=== PATIENT | female | born 1935 | race Two or more races ===

== ENCOUNTER 2019-11-26 14:58 | Inpatient (IN) | payer MEDICARE, OTHER ==
[~2019-11-26] VITALS: Ht 170.2 cm; Wt 104.3 kg
--- NOTE | 2019-11-26 15:48 | NUR ---
Miesha (bilingual receptionist) utilized as project director. Pt denies any pain/complaints at this time. Plan of care discussed
[2019-11-26 16:00] LABS: BASOPHILS # (AUTO) 0.1 /CMM (0.0-0.2); BASOPHILS % (AUTO) 0.8 % (0.0-2.0); EOSINOPHILS % (AUTO) 1.9 % (0.0-6.0); HEMATOCRIT 25 % (33-45); HEMOGLOBIN 7.6 g/dL (11.5-14.8); LYMPHOCYTES # (AUTO) 1.9 /CMM (0.8-4.8); LYMPHOCYTES % (AUTO) 25.2 % (20.0-44.0); MEAN CORPUSCULAR HGB CONC 31 g/dl (31.0-36.0); MEAN CORPUSCULAR VOLUME 77 fL (82-100); MONOCYTES # (AUTO) 0.6 /CMM (0.1-1.30); MONOCYTES % (AUTO) 7.6 % (2.0-12.0); NEUTROPHILS % (AUTO) 64.5 % (43.0-81.0); PLATELET COUNT (AUTO) 378 /CMM (150-450); WHITE BLOOD COUNT (AUTO) 7.7 K/uL (4.3-11.0)
[2019-11-26 16:19] LABS: CARBON DIOXIDE 26 mmol/L (21-32); CHLORIDE 101 mmol/L (98-107); CREATININE 1.4 mg/dL (0.6-1.3); GLUCOSE 180 mg/dL (74-106); POTASSIUM 3.6 mmol/L (3.5-5.1); SODIUM SERUM 137 mmol/L (136-145); UREA NITROGEN, BLOOD 28 mg/dL (7-18)
--- NOTE | 2019-11-26 16:21 | NUR ---
PANEL ON-CALL PAGED
[2019-11-26 16:24] LABS: ALANINE AMINOTRANSFERASE 16 U/L (12-78); ALBUMIN 3.1 g/dL (3.4-5.0); ALKALINE PHOSPHATASE 63 U/L (46-116); ASPARTATE AMINOTRANSFERASE 11 U/L (15-37); B-TYPE NATRIURETIC PEPTIDE 833 PG/ML (0-125); BILIRUBIN,DIRECT 0.1 mg/dL (0.0-0.2); BILIRUBIN,TOTAL 0.3 mg/dL (0.2-1.0); TOTAL PROTEIN, SERUM 6.7 g/dL (6.4-8.2)
--- NOTE | 2019-11-26 16:44 | NUR ---
Pt going [id number] Nurse Knowledge exchange w/RN Bethany. Pt made aware of plan. Denies any complaints at this time. Transported/bryan VIDAL
--- NOTE | 2019-11-26 16:50 | NUR ---
PAGED EPIC SECOND ATTEMPT.
--- NOTE | 2019-11-26 17:41 | NUR ---
Transported per [facility]. No obvious distress
--- NOTE | 2019-11-26 17:55 | NUR ---
DIRECTOR OF PRIMARY NOTES RECEIVED PATIENT IN MEDICALLY STABLE CONDITION. VS: BP: 143/71, TEMP: 98.1 HR: 71 RESP: 18 O2 92 ON ROOM AIR. WILL CONTINUE TO ADMIT AND MONITOR PATIENT
[2019-11-26] MEDS ORDERED: Z GUARD REMEDY 2 OZ OINT TP PRN (18:30)
[2019-11-26] MEDS ORDERED: ONDANSETRON HCL/PF 4 MG/2 ML VIAL IVP PRN (18:30)
[2019-11-26] MEDS ORDERED: ACETAMINOPHEN 325 MG TABLET PO PRN (18:30)
--- NOTE | 2019-11-26 19:10 | NUR ---
TOBACCO SORTER NOTES PATIENT IS IN BED, AWAKE, A/O X3. PATIENT BREATHING ON ROOM AIR; BREATHING IS EVEN AND UNLABORED; NO SOB PRESENT. R HAND G # 20 PRESENT AND INTACT. SAFETY PRECAUTIONS IN PLACE; BED IN LOW POSITION AND LOCKED, RAILS UP X2, CALL LIGHT WITHIN REACH. WILL ENDORSE CONTINUITY OF CARE AND ADMITION TO LENS MARKER NURSE.
[2019-11-26 20:00] VITALS: BP 131/58
[2019-11-27] VITALS: BP 122/67
[2019-11-27 06:29] VITALS: BP 112/58
[2019-11-27 06:37] LABS: BASOPHILS % (AUTO) 0.4 % (0.0-2.0); EOSINOPHILS % (AUTO) 2.6 % (0.0-6.0); HEMATOCRIT 26 % (33-45); HEMOGLOBIN 8.3 g/dL (11.5-14.8); LYMPHOCYTES % (AUTO) 27.6 % (20.0-44.0); MEAN CORPUSCULAR HGB CONC 32 g/dl (31.0-36.0); MEAN CORPUSCULAR VOLUME 75 fL (82-100); MONOCYTES # (AUTO) 0.5 /CMM (0.1-1.30); MONOCYTES % (AUTO) 6.3 % (2.0-12.0); NEUTROPHILS # (AUTO) 4.5 /CMM (1.8-8.9); NEUTROPHILS % (AUTO) 63.1 % (43.0-81.0); PLATELET COUNT (AUTO) 389 /CMM (150-450); RED BLOOD CELL COUNT(AUTO) 3.45 MIL/uL (4.0-5.2); WHITE BLOOD COUNT (AUTO) 7.2 K/uL (4.3-11.0)
[2019-11-27 06:54] LABS: ALBUMIN 3.1 g/dL (3.4-5.0); BILIRUBIN,TOTAL 0.5 mg/dL (0.2-1.0); CALCIUM, SERUM 8.5 mg/dL (8.5-10.1); CREATININE 1.3 mg/dL (0.6-1.3); MAGNESIUM 1.6 mg/dL (1.8-2.4); PHOSPHORUS 3.6 mg/dL (2.5-4.9); POTASSIUM 3.9 mmol/L (3.5-5.1); TOTAL PROTEIN, SERUM 7.1 g/dL (6.4-8.2)
[2019-11-27 06:57] LABS: THYROID STIMULATING HORMONE 1.684 uIU/mL (0.358-3.74)
--- NOTE | 2019-11-27 07:30 | NUR ---
ms rn received on bed, awake,alert,oriented x3,not in any form of distress,respirations even and unlabored,no sob noted.
[2019-11-27 08:00] VITALS: BP 120/46
--- NOTE | 2019-11-27 08:30 | NUR ---
ms rn breakfast served, was seen by dr. laila piper/ orders made and carried out.
[2019-11-27 09:23] LABS: CREATININE, URINE 108.2 MG/DL (30.0-125.0); URINE TOTAL PROTEIN 17.4 mg/dL (0-11.9)
[2019-11-27] MEDS ORDERED: ENOXAPARIN SODIUM 40 MG/0.4 ML DISP.SYRIN SQ SCH (09:30)
[2019-11-27] MEDS: FUROSEMIDE 40 MG/4 ML VIAL IV SCH ×3 (10:00→17:11)
[2019-11-27] MEDS: PANTOPRAZOLE 40 MG TABLET.DR PO SCH (10:01)
[2019-11-27] MEDS: POTASSIUM CHLORIDE 20 MEQ TAB.PRT.SR PO SCH ×3 (10:01→13:10)
[2019-11-27] MEDS: Magnesium 1GM/D5W 100ML PREMIX 100 ML IV SCH ×2 (10:13→12:04)
[2019-11-27 10:25] LABS: APPEARANCE,URINE SL CLOUDY (CLEAR); BILIRUBIN,URINE NEGATIVE (NEGATIVE); BLOOD, URINE NEGATIVE Ery/uL (NEGATIVE); COLOR,URINE YELLOW (YELLOW); KETONES,URINE NEGATIVE (NEGATIVE); LEUKOCYTE ESTERASE ,URINE LARGE (NEGATIVE); NITRITE, URINE NEGATIVE (NEGATIVE); PROTEIN,URINE NEGATIVE (NEGATIVE); UGLUCOSE NEGATIVE (NEGATIVE); UROBILINOGEN,URINE 0.2 EU/dL (0.2)
[2019-11-27 10:33] LABS: RBC,URINE 0-2 /HPF (0-2); SQUAMOUS EPITHELIAL CELL,UR Few /HPF (None Seen); WBC,URINE 21-50 /HPF (0-3)
[2019-11-27 10:34] LABS: BACTERIA,URINE Few /HPF (None Seen)
--- NOTE | 2019-11-27 11:02 | NUR ---
PRELIM RESULTS OF DUPLEX VENOUS LOWER EXT BILATERAL SHOWED POSITIVE FOR DVT AT LT SFV PROX. FINDINGS ADVISED TO RN.
[2019-11-27 11:17] LABS: EOSINOPHIL,URINE None Seen
[2019-11-27 12:00] VITALS: BP 143/55
--- NOTE | 2019-11-27 13:00 | NUR ---
ms bhaskar called dr. ulloa for dvt positive result w/ orders made and carried out.
[2019-11-27] MEDS ORDERED: ENOXAPARIN SODIUM 100 MG/ML DISP.SYRIN SQ SCH (14:00)
[2019-11-27] MEDS ORDERED: ENOXAPARIN SODIUM 60 MG/0.6 ML DISP.SYRIN SQ ONE (14:30)
[2019-11-27] MEDS: SOD FERRIC GLUC 125 MG in IV NS 0.9% 100 ML IV SCH (14:39)
[2019-11-27 16:00] VITALS: BP 164/69
--- NOTE | 2019-11-27 18:00 | NUR ---
ms rn on bed, no distress noted.
--- NOTE | 2019-11-27 19:10 | NUR ---
RN OPENING NOTES Received patient, A/o x4 awake on bed resting. Patient denies any discomfort at this time, saturating well at RA. On fall and aspiration precautions. Kept on bed clean, dry and comfortable. Will continue to monitor accordingly.
[2019-11-27 20:00] VITALS: BP 118/61
[2019-11-27] MEDS: ENOXAPARIN SODIUM 100 MG/ML DISP.SYRIN SQ SCH (20:52)
[2019-11-27] MEDS: HYDROCODONE/APAP 5/325MG 1 EACH TABLET PO PRN (21:17)
--- NOTE | 2019-11-28 07:08 | NUR ---
RN CLOSING NOTES Patient asleep on bed, easily awaken. No new complaints made. Pain managed with PRN meds ordered. All nursing needs attended. No new complaints noted. Endorsed.
[2019-11-28 08:00] VITALS: BP 128/64
--- NOTE | 2019-11-28 08:00 | NUR ---
MS RN OPENING NOTES Received Patient awake and resting in bed. A/O x 3, Amharic speaking. VS stable with no acute distress. Breathing even and unlabored on room air with no respiratory distress. Denies pain. No signs and symptoms of pain. 20g PIV on right hand clean, intact, patent and flushing well. 24g PIV on left hand clean, intact, patent and flushing well. Safety precautions in place. Bed locked and set to lowest position with side rails x 2 up. All needs rendered at this time. Call light within reach. Will continue to monitor.
[2019-11-28 08:01] LABS: BASOPHILS % (AUTO) 0.7 % (0.0-2.0); EOSINOPHILS % (AUTO) 3.3 % (0.0-6.0); HEMATOCRIT 26 % (33-45); HEMOGLOBIN 8.2 g/dL (11.5-14.8); LYMPHOCYTES # (AUTO) 1.4 /CMM (0.8-4.8); LYMPHOCYTES % (AUTO) 26.7 % (20.0-44.0); MEAN CORPUSCULAR HGB CONC 31 g/dl (31.0-36.0); MEAN CORPUSCULAR VOLUME 76 fL (82-100); MONOCYTES # (AUTO) 0.4 /CMM (0.1-1.30); MONOCYTES % (AUTO) 7.5 % (2.0-12.0); NEUTROPHILS # (AUTO) 3.3 /CMM (1.8-8.9); NEUTROPHILS % (AUTO) 61.8 % (43.0-81.0); PLATELET COUNT (AUTO) 354 /CMM (150-450); RED BLOOD CELL COUNT(AUTO) 3.46 MIL/uL (4.0-5.2); WHITE BLOOD COUNT (AUTO) 5.3 K/uL (4.3-11.0)
[2019-11-28] MEDS: ENOXAPARIN SODIUM 100 MG/ML DISP.SYRIN SQ SCH ×2 (08:27→21:19)
[2019-11-28] MEDS: PANTOPRAZOLE 40 MG TABLET.DR PO SCH (08:27)
[2019-11-28 08:30] LABS: BILIRUBIN,TOTAL 0.4 mg/dL (0.2-1.0); CALCIUM, SERUM 8.6 mg/dL (8.5-10.1); PHOSPHORUS 3.7 mg/dL (2.5-4.9); POTASSIUM 3.9 mmol/L (3.5-5.1); TOTAL PROTEIN, SERUM 6.8 g/dL (6.4-8.2)
[2019-11-28 10:09] LABS: PTH, INTACT 64 pg/mL (15-65)
[2019-11-28] MEDS: SOD FERRIC GLUC 125 MG in IV NS 0.9% 100 ML IV SCH (14:26)
[2019-11-28 16:00] VITALS: BP 147/63
[2019-11-28] MEDS: CEFTRIAXONE 1 G in IV D5W 50 ML IV SCH (16:10)
--- NOTE | 2019-11-28 18:43 | NUR ---
MS RN CLOSING NOTES Patient awake and resting in bed. A/O x 3, Nepalese speaking. VS stable with no acute distress. Breathing even and unlabored on room air with no respiratory distress. Denies pain. No signs and symptoms of pain. 24g PIV on left hand clean, intact, patent and flushing well. Safety precautions in place. Bed locked and set to lowest position with side rails x 2 up. All needs rendered at this time. Call light within reach. Will endorse plan of care to oncoming shift.
--- NOTE | 2019-11-28 19:20 | NUR ---
MS/RN OPENING NOTES: Received Patient awake and resting in bed. A/O x 3, Hungarian speaking, understands Czech. VS stable with no acute distress. Breathing even and unlabored on room air with no respiratory distress. Denies pain. No signs and symptoms of pain. IV present on the left hand #24g SL, clean, intact, patent and flushing well. Safety precautions in place. Bed locked and set to lowest position with side rails x 2 up. All needs rendered at this time. Call light within reach. Will continue to monitor accordingly.
[2019-11-28 20:00] VITALS: BP 149/63
[2019-11-28 21:03] VITALS: BP 149/63
[2019-11-29] MEDS: HYDROCODONE/APAP 5/325MG 1 EACH TABLET PO PRN (02:55)
--- NOTE | 2019-11-29 02:56 | NUR ---
MS/RN NOTES: PT COMPLAINED OF PAIN ON PALMA. CALF/LEGS. BP:143/79. HR:83. NO SOB NOTED, BREATHING EVEN AND UNLABORED. PT STABLE. ADMINISTERED 5/[address] TOLERATED WELL. WILL CONTINUE TO MONITOR ACCORDINGLY.
[2019-11-29 06:51] LABS: BASOPHILS % (AUTO) 0.5 % (0.0-2.0); HEMATOCRIT 27 % (33-45); HEMOGLOBIN 8.5 g/dL (11.5-14.8); LYMPHOCYTES % (AUTO) 29.5 % (20.0-44.0); MEAN CORPUSCULAR HGB CONC 31 g/dl (31.0-36.0); MEAN CORPUSCULAR VOLUME 76 fL (82-100); MONOCYTES # (AUTO) 0.4 /CMM (0.1-1.30); MONOCYTES % (AUTO) 6.1 % (2.0-12.0); NEUTROPHILS # (AUTO) 4.2 /CMM (1.8-8.9); NEUTROPHILS % (AUTO) 61.9 % (43.0-81.0); PLATELET COUNT (AUTO) 400 /CMM (150-450); RED BLOOD CELL COUNT(AUTO) 3.56 MIL/uL (4.0-5.2); WHITE BLOOD COUNT (AUTO) 6.7 K/uL (4.3-11.0)
--- NOTE | 2019-11-29 06:52 | NUR ---
MS/RN CLOSING NOTES: Patient resting in bed. Remains A/O x 3, Slovak speaking, no significant changes in condition. No acute distress. Breathing even and unlabored on room air with no respiratory distress. Denies pain. Ambulatory. BSC at bedside. No signs and symptoms of pain. IV present on the left hand #24g SL, clean, intact, patent and flushing well. Safety precautions in place. Bed locked and set to lowest position with side rails x 2 up. All needs rendered at this time. Call light within reach. Will endorse to day shift for LIZET.
[2019-11-29 07:21] LABS: CALCIUM, SERUM 8.5 mg/dL (8.5-10.1); CREATININE 0.9 mg/dL (0.6-1.3); POTASSIUM 3.9 mmol/L (3.5-5.1)
[2019-11-29] MEDS: PANTOPRAZOLE 40 MG TABLET.DR PO SCH (07:57)
[2019-11-29 08:00] VITALS: BP 158/75
--- NOTE | 2019-11-29 08:01 | NUR ---
MS/RN NOTES: Remains A/O x 3, Azerbaijani speaking, resting in bed, No acute distress. Breathing even and unlabored on room air with no respiratory distress. Denies pain when asked. BSC at bedside. IV present on the left hand #24g SL, clean, intact, patent and flushing well. Safety precautions in place. Bed locked and set to lowest position with side rails x 2 up. All needs rendered at this time. Call light within reach. Will continue to monitor.
[2019-11-29] MEDS: METFORMIN 500 MG TABLET PO SCH ×2 (08:40→17:29)
[2019-11-29] MEDS: ENOXAPARIN SODIUM 100 MG/ML DISP.SYRIN SQ SCH ×2 (08:43→20:58)
--- NOTE | 2019-11-29 12:29 | NUR ---
SERVICES TECH/MED RECON UNABLE TO UPDATE MED RECON AT THIS TIME. PATIENT UNABLE TO PROVIDE ANY INFO. CALLED [facility], SPOKE WITH ALCIRA ([phone]. PER ALCIRA, UNABLE TO PROVIDE ANY HELP AT THIS TIME DUE TO FACILITY COMPUTER SYSTEM IS CURRENTLY DOWN AND OFF LINE. RECOMMENDED TO CALL LATER BEFORE 1700. PRIMARY RN ALAN.
[2019-11-29] MEDS: SOD FERRIC GLUC 125 MG in IV NS 0.9% 100 ML IV SCH (14:00)
--- NOTE | 2019-11-29 14:32 | NUR ---
Social service consult requested by MD due to pt residing alone and unable to care for self. Per Md notes, pt is a 84-year-old Cymro speaking female with past medical history of hypertension, hyperlipidemia, CHF, diabetes, atherosclerotic heart disease, previous AR, and chronic peripheral edema who presented to emergency department after patient complained of increasing weakness and chest pain described as mild, pressure-like, substernal, nonradiating, and persistent over the past year. Denies any associated shortness of breath, diaphoresis, nausea, vomiting, diarrhea, lightheadedness or dizziness. Patient lives alone and neighbors reportedly called EMS to encourage patient to be evaluated at the hospital as she has recently been not able to get around the house well or take care of herself. MARKET ANALYST contacted pt's son Raymundo, since pt is Cymro speaking. MARKET ANALYST introduced self and purpose of the call. Per Raymundo, pt resides with him and does not live alone. Raymundo stated, he had gone out for a few minutes to run an errand and had called his neighbor to check in on the pt. The neighbor found the pt and had called the son, who called 911. Per Raymundo, pt is currently a hospice patient and is receiving services at home. Pt ambulates with a walker. Pt is dependent on her ADLs and IADLs. Pt's son does her grocery shopping and takes her to her doctor appointments. Pt is receiving 100 + hours per month in [facility]. Pt has a caregiver who comes to assist the pt with bathing, meal preparation and housekeeping. No social service needs are requested at this time. Medical Ophthalmic Asst to be available for support as needed. MARKET ANALYST updated STEVE Royal with aforementioned information.
[2019-11-29] MEDS ORDERED: ROSU10TA29 PO (15:31)
[2019-11-29] MEDS ORDERED: LORA-259 PO (15:31)
[2019-11-29] MEDS ORDERED: ARIP10TA17 PO (15:31)
[2019-11-29] MEDS ORDERED: GABA300C PO (15:31)
[2019-11-29] MEDS ORDERED: PARO20TA7 PO (15:31)
[2019-11-29] MEDS ORDERED: AMLO-62 PO (15:31)
[2019-11-29] MEDS ORDERED: SITA100T PO (15:31)
[2019-11-29] MEDS ORDERED: ASPI-1152 PO (15:32)
[2019-11-29] MEDS: CEFTRIAXONE 1 G in IV D5W 50 ML IV SCH (15:35)
[2019-11-29 16:00] VITALS: BP 152/74
[2019-11-29 16:09] LABS: *SPE A/G RATIO 0.8 (0.7-1.7); *SPE ALBUMIN 2.8 g/dL (2.9-4.4); *SPE ALPHA-1-GLOBULIN 0.3 g/dL (0.0-0.4); *SPE ALPHA-2-GLOBULIN 0.9 g/dL (0.4-1.0); *SPE BETA GLOBULIN 1.2 g/dL (0.7-1.3); *SPE GLOBULIN, TOTAL 3.4 g/dL (2.2-3.9); *SPE M-SPIKE Not Observed g/dL (Not Observed)
--- NOTE | 2019-11-29 16:32 | NUR ---
YARD SWITCH OPERATOR/MED RECON MED RECON UPDATED. INFO OBTAINED FROM FERNY (SON). ALSO CALLED AND SPOKE WITH ALCIRA FROM HOSPICE, STATED COMPUTER SYSTEM STILL DOWN/OFF LINE AND UNABLE TO PROVIDE ANY HELP. PRIMARY NURSE AWARE.
--- NOTE | 2019-11-29 18:45 | NUR ---
MS/RN CLOSING NOTES: Patient resting in bed. Remains A/O x 3, Georgian speaking, no significant changes in condition. No acute distress. Breathing even and unlabored on room air with no respiratory distress. Denies pain. Ambulatory. BSC at bedside. No signs and symptoms of pain.New IV reinserted on right wrist #20g SL, clean, intact, patent and flushing well. Safety precautions in place. Bed locked and set to lowest position with side rails x 2 up. All needs rendered at this time. Call light within reach.
--- NOTE | 2019-11-29 19:10 | NUR ---
MS/RN OPENING NOTES: Received Patient awake and resting in bed. A/O x 3, Telugu speaking, understands minimal Irish. VS stable with no acute distress. Breathing even and unlabored on room air with no respiratory distress. Denies pain. No signs and symptoms of pain. IV present on the right wrist #20g HL, clean, intact, patent and flushing well. Safety precautions in place. Bed locked and set to lowest position with side rails x 2 up. BSC present in the room. All needs rendered at this time. Call light within reach. Will continue to monitor accordingly.
[2019-11-29 20:00] VITALS: BP 134/74
--- NOTE | 2019-11-30 06:14 | NUR ---
MS/RN CLOSING NOTES: Patient is resting in bed. Remains A/O x 3, Bahamian speaking, no significant changes in condition. No acute distress. Breathing even and unlabored on room air with no respiratory distress. Denies pain. Ambulatory. BSC at bedside. No signs and symptoms of pain. IV present on the right wrist #20g SL, clean, intact, patent and flushing well. Wrapped in kerlix to prevent pt from pulling it out. Safety precautions in place. Bed locked and set to lowest position with side rails x 2 up. All needs rendered at this time. Call light within reach. Possible DC today. Will endorse to day shift for LIZET.
--- NOTE | 2019-11-30 07:47 | NUR ---
MS/RN OPENING NOTES: Received Patient awake and sitting in the chair. A/O x 3, Mongolian speaking, understands minimal Hong Konger. stable with no acute distress. Breathing even and unlabored on room air with no respiratory distress noted. Denies pain. No signs and symptoms of pain. IV present on the right wrist #20g HL, clean, intact, patent and flushing well. Safety precautions in place. Bed locked and set to lowest position with side rails x 2 up. BSC present in the room. All needs rendered at this time. Call light within reach. Will continue to monitor accordingly.
[2019-11-30] MEDS: PANTOPRAZOLE 40 MG TABLET.DR PO SCH (08:16)
[2019-11-30] MEDS: METFORMIN 500 MG TABLET PO SCH (08:17)
[2019-11-30] MEDS: ENOXAPARIN SODIUM 100 MG/ML DISP.SYRIN SQ SCH (08:56)
[2019-11-30] MEDS ORDERED: PANT40TA2 PO (10:57)
[2019-11-30] MEDS ORDERED: DABI150C PO (10:57)
--- NOTE | 2019-11-30 12:15 | NUR ---
MS RN NOTES PATIENT DISCHARGED HOME IN STABLE CONDITION. PATIENT REFUSED AM LABS, REFUSED ALL TREATMENT, INSISTED ON GOING HOME. PATIENT WAS SEEN BY NITA MCMAHON. AWARE OF ALL ABNORMAL LABS AND TESTS. DISCHARGE INSTRUCTIONS PROVIDED, VERBALIZED UNDERSTANDING. PATIENT HAS BEEN NONE COMPLIANT WITH CARE AND MEDICATIONS. DISCHARGE INSTRUCTIONS PROVIDED TO PATIENTS SON VERBALIZED UNDERSTANDING. PRESCRIPTION GIVEN TO PATIENTS SON. ALL BELONGINGS ACCOUNTED FOR. BELONGING LIST SIGNED. PERIPHERAL IV REMOVED WITH MINIMAL BLEEDING. ID BAND REMOVED. PATIENT ESCORTED TO CAR.
[2019-11-30] MEDS ORDERED: DABIGATRAN ETEXILATE MESYLATE 150 MG CAPSULE PO SCH (21:00)
[2019-11-30] MEDS ORDERED: GABAPENTIN 300 MG CAPSULE PO SCH (22:00)
[2019-12-01] MEDS ORDERED: PAROXETINE HCL 20 MG TABLET PO SCH (09:00)
[2019-12-01] MEDS ORDERED: ASPIRIN EC 81 MG TABLET.DR PO SCH (09:00)
== END 2019-11-30 12:15 | disposition hospice, home (50) | DRG 682 ==
LOC: ER 15:01 → TELE 17:51 → MED 11-27 10:40
PROVIDERS: ADMIT Hospitalist; ATTEND Nurse Practitioner Acute Care
DX: N17.0 Acute kidney failure with tubular necrosis (principal); I50.33 Acute on chronic diastolic (congestive) heart failure; N39.0 Urinary tract infection, site not specified; E44.1 Mild protein-calorie malnutrition; I82.512 Chronic embolism and thrombosis of left femoral vein; I11.0 Hypertensive heart disease with heart failure; E11.65 Type 2 diabetes mellitus with hyperglycemia; R62.7 Adult failure to thrive; D50.9 Iron deficiency anemia, unspecified; E66.9 Obesity, unspecified; E83.42 Hypomagnesemia; F03.90 Unspecified dementia, unspecified severity, without behavioral disturbance, psychotic disturbance, mood disturbance, and anxiety; I25.10 Atherosclerotic heart disease of native coronary artery without angina pectoris; Z87.891 Personal history of nicotine dependence; Z91.14 Patient's other noncompliance with medication regimen; F32.9 Major depressive disorder, single episode, unspecified; N18.9 Chronic kidney disease, unspecified; R07.9 Chest pain, unspecified; I25.2 Old myocardial infarction; G47.33 Obstructive sleep apnea (adult) (pediatric); I08.0 Rheumatic disorders of both mitral and aortic valves; E88.09 Other disorders of plasma-protein metabolism, not elsewhere classified; Z68.36 Body mass index [BMI] 36.0-36.9, adult
CPT/HCPCS: 36415; 71045-TC; 80048-TC; 80053-TC; 80061-TC; 80076-TC; 81000-TC; 82550-TC; 82570-TC; 82728-TC; 82962-TC; 83540-TC; 83735-TC; 83880; 83970; 84100-TC; 84155; 84155-TC; 84165; 84300-TC; 84443-TC; 84484-TC; 85025-TC; 85730-TC; 87081-TC; 87086-TC; 93307-TC; 93970-TC; 97116-TC; 97530-TC; G0378; J0696; J1650; J1940; J2916; J3475; J7030; J7050; J7060